=== PATIENT | male | born 1990 | race Caucasian/White ===

== ENCOUNTER 2022-09-12 03:48 | Emergency (ER) | payer OTHER ==
[2022-09-12 03:56] VITALS: TEMP 98.1; BMI 28.8
[2022-09-12] MEDS ORDERED: LORazepam 2 MG/ML SDV VIAL IVPUSH ONE (04:30)
[2022-09-12 04:57] LABS: HEMATOCRIT 43.1 % (35.4-49); HEMOGLOBIN 14.5 GM/dL (11.7-16.9); MCH 29.5 pg (25.7-33.7); MCHC 33.8 g/dl (32.0-35.9); MEAN CELL VOLUME 87.4 fl (80-96); PLATELET COUNT 203 10^3/uL (134-434); RBC 4.93 M/mm3 (4.00-5.60); RDW 13.1 % (11.9-15.9); WHITE BLOOD COUNT 7.2 K/mm3 (4.0-10.0)
[2022-09-12 05:15] LABS: CHLORIDE 106 mmol/L (98-107); POTASSIUM 4.4 mmol/L (3.5-5.1); SODIUM 140 mmol/L (136-145)
[2022-09-12 05:17] LABS: CALCIUM 9.1 mg/dL (8.5-10.1)
[2022-09-12 05:18] LABS: ALBUMIN 4.2 g/dl (3.4-5.0); ANION GAP 7 MMOL/L (8-16); BLOOD UREA NITROGEN 8.7 mg/dL (7-18); CO2 26 mmol/L (21-32); GLUCOSE,RANDOM 105 mg/dL (74-106)
[2022-09-12 05:20] LABS: CREATININE 0.9 mg/dL (0.55-1.3)
[2022-09-12 05:21] LABS: SGOT/AST 39 U/L (15-37); SGPT/ALT 34 U/L (13-61)
[2022-09-12 05:22] LABS: TOT PROT 8.2 g/dl (6.4-8.2)
[2022-09-12 05:23] LABS: ALK PHOS 99 U/L (45-117); BILIRUBIN,TOTAL 0.4 mg/dL (0.2-1)
[2022-09-12] MEDS ORDERED: SODIUM CHLORIDE 1,000 ML IV STA (05:34)
[2022-09-12 06:59] VITALS: BP 115/75; PULSE 88; RESP 16
[2022-09-12 09:47] LABS: ANISOCYTOSIS 0; MACROCYTOSIS 0
== END 2022-09-12 07:20 | disposition home or self-care (01) ==
LOC: JER 03:48
PROC: 3E033GC Introduction of Other Therapeutic Substance into Peripheral Vein, Percutaneous Approach (ICD-10-PCS; principal; 2022-09-12)
PROC: 3E0337Z Introduction of Electrolytic and Water Balance Substance into Peripheral Vein, Percutaneous Approach (ICD-10-PCS; 2022-09-12)
DX: R51.9 Headache, unspecified (principal); R11.2 Nausea with vomiting, unspecified; R42 Dizziness and giddiness; R00.2 Palpitations; F41.9 Anxiety disorder, unspecified; Z20.822 Contact with and (suspected) exposure to COVID-19
CPT/HCPCS: 36415; 80053; 82550; 82553; 84443; 84484; 85025; 87635; 93005; 93010; 99284-25